=== PATIENT | male | born 1970 | race Caucasian/White ===

== ENCOUNTER 2018-11-05 03:06 | Emergency (ER) | payer OTHER ==
[~2018-11-05] VITALS: Ht 172.7 cm; Wt 67.6 kg
[~2018-11-05 03:06] MED LIST: MINIPRIN81 MG; VITAMIN A10000 UNI3; VITAMIN D10000 UNIT PO; VITAMINC500 PO
[2018-11-05 04:38] VITALS: BP 127/82
== END 2018-11-05 04:39 | disposition home or self-care (01) ==
LOC: ER 03:06
DX: S01.01XA Laceration without foreign body of scalp, initial encounter (principal); F17.210 Nicotine dependence, cigarettes, uncomplicated; Y04.2XXA Assault by strike against or bumped into by another person, initial encounter; Y92.89 Other specified places as the place of occurrence of the external cause; Y93.89 Activity, other specified; Y99.8 Other external cause status